=== PATIENT | female | born 1975 | race Caucasian/White ===

== ENCOUNTER → 2016-07-19 | Outpatient (CLI) | payer OTHER | LOC: BMCIMAGING 14:30 | PROVIDERS: ATTEND Family Medicine | DX: M79.89 Other specified soft tissue disorders (principal); M77.32 Calcaneal spur, left foot ==

== ENCOUNTER → 2018-09-12 | Outpatient (CLI) | payer MEDICAID | LOC: FIMAGING 16:01 ==